=== PATIENT | female | born 1935 | race Caucasian/White ===

== ENCOUNTER 2017-11-06 20:57 | Emergency (ER) | payer OTHER, BC ==
[~2017-11-06] VITALS: Ht 172.7 cm; Wt 83.0 kg
[2017-11-06 22:20] LABS: HEMATOCRIT 40.1 % (36.0-46.0); MCH 30.8 PG (29.0-34.0); MCHC 31.7 G/DL (30.0-36.0); MCV 97.1 FL (83-99); MEAN PLAT.VOLUME 10.6 uM^3 (9.5-12.4); PLATELET COUNT 306 K/uL (156-360); RBC DIS.WIDTH-CV 14.5 % (11.8-14.6); RBC DIS.WIDTH-SD 51.7 % (39-53); RED BLOOD COUNT 4.13 M/uL (3.80-5.20)
[2017-11-06 22:31] LABS: CHLORIDE 101 mEq/L (99-109); SODIUM 139 mEq/L (136-147)
[2017-11-06 22:34] LABS: GLUCOSE 276 mg/dL (70-99)
[2017-11-06 22:35] LABS: ANION GAP 12 MEQ/L (2-14)
[2017-11-06 22:36] LABS: TOTAL BILIRUBIN 0.2 mg/dL (0.0-1.0)
[2017-11-06 22:37] LABS: ALKALINE PHOSPHATASE 111 IU/L (3-129); GFR ESTIMATE (CALCULATED) 50 mL/min/
[2017-11-06 22:39] LABS: UREA NITROGEN (BUN) 24 mg/dL (9-23)
[2017-11-06 23:51] LABS: ADD MIUA? NO; BILIRUBIN NEGATIVE; BLOOD NEGATIVE; COLOR YELLOW ((YELLOW)); GLUCOSE (STRIP) >=500; KETONES NEGATIVE; LEUKOCYTES NEGATIVE; NITRITE NEGATIVE; PROTEIN (STRIP) NEGATIVE; SPECIFIC GRAVITY 1.018 (1.000-1.030); UCUL ADDED? NO; UROBILINOGEN 0.2 MG/DL (0.2-1.0)
[2017-11-07 00:33] VITALS: BP 118/69
== END 2017-11-07 00:33 | disposition home or self-care (01) ==
LOC: EME 20:57
DX: M25.551 Pain in right hip (principal); R07.81 Pleurodynia; W06.XXXA Fall from bed, initial encounter; M16.0 Bilateral primary osteoarthritis of hip; R32 Unspecified urinary incontinence; R35.8 Other polyuria; R41.0 Disorientation, unspecified; R51 Headache; Z95.2 Presence of prosthetic heart valve
CPT/HCPCS: 71020; 73502; 80053; 81003; 85027; 99281; 99283